=== PATIENT | male | born 1980 | race Caucasian/White ===

== ENCOUNTER 2018-11-29 16:27 | Inpatient (IN) | payer OTHER ==
[2018-11-29 19:12] VITALS: BMI 19.5
--- NOTE | 2018-11-29 19:34 | HP ---
CIWA Score Nausea/Vomitin-No Nausea/No Vomiting Muscle Tremors: None Anxiety: 0-No Anxiety, at Ease Agitation: 2 Paroxysmal Sweats: No Perspiration Orientation: 1-Uncertain about Date Tacttile Disturbances: 0-None Auditory Disturbances: 0-None Visual Disturbances: 0-None Headache: 0-None Present CIWA-Ar Total Score: 3 - Admission Criteria OASAS Guidelines: Admission for Medically Managed Detox: Requires at least one of the followin. CIWA greater than 12 2. Seizures within the past 24 hours 3. Delirium tremens within the past 24 hours 4. Hallucinations within the past 24 hours 5. Acute intervention needed for co occurring medical disorder 6. Acute intervention needed for co occurring psychiatric disorder 7. Severe withdrawal that cannot be handled at a lower level of care (continued vomiting, continued diarrhea, abnormal vital signs) requiring intravenous medication and/or fluids 8. Admission ROS [facility] Chief Complaint: seeking help for alcohol use Allergies/Adverse Reactions: Allergies Allergy/AdvReac Type Severity Reaction Status Date / Time vac AdvReac Severe Uncoded 11/29/18 18:55 History of Present Illness: 38 y/o/m here seeking help for alcohol use. He has been drinking since the age of 23 and states his drinking is getting worse. He has been drinking 3-4 pints of liquor everyday and sometimes drinks beer as well. He starts drinking early in the mornings and if he does not drink he starts to shake and feel nauseous. His last drink was this morning. He has not had any extended periods of sobriety other than when he admitted for detox. He was last in for detox over the last winter at [facility] but did not complete his stay there. He denies any history of seizure and has had multiple episodes of blackouts. He feels that he has a blackout episode almost everyday now. He also smokes Marijuana 2-3 blunts but he does not smoke everyday, he last used marijuana yesterday. He admits to using Percocets twice a week which is buying off the streets, he last took the Percocets four days ago. PMHx of asthma, pancreatitis and a low WBC. SHx on his right knee and left hip for fluid drainage and stomach surgery for cancer 8 years ago. He is living with his cousin and is on disability insurance. He smokes black and mild cigars and uses 3-4 a day. He gets an infusion of gammaglobulin every 3 weeks from [facility] for his low WBC, his last infusion was a week and a half ago. He last had an episode of pancreatitis one week ago and was seen at [facility]. - Ebola screening Have you traveled outside of the country in the last 21 days: No Have you had contact with anyone from an Ebola affected area: No Do you have a fever: No - Review of Systems Constitutional: Loss of Appetite EENT: reports: No Symptoms Reported Respiratory: reports: Shortness of Breath Cardiac: reports: Chest Pain : reports: No Symptoms Reported Musculoskeletal: reports: No Symptoms Reported Integumentary: reports: No Symptoms Reported Neuro: reports: No Symptoms reported Endocrine: reports: No Symptoms Reported Hematology: reports: No Symptoms Reported Psychiatric: reports: Agitated Other Systems: Reviewed and Negative Patient History - Patient Medical History Hx Anemia: No Hx Asthma: Yes Hx Chronic Obstructive Pulmonary Disease (COPD): No Hx Cancer: Yes (stomach cancer, 2010) Hx Cardiac Disorders: No Hx Congestive Heart Failure: No Hx Hypertension: No Hx Hypercholesterolemia: No Hx Pacemaker: No HX Cerebrovascular Accident: No Hx Seizures: No Hx Dementia: No Hx Diabetes: No Hx Gastrointestinal Disorders: No Hx Liver Disease: Yes Hx Genitourinary Disorders: No Hx Sexually Transmitted Disorders: No Hx Renal Disease (ESRD): No Hx Thyroid Disease: No Hx Human Immunodeficiency Virus (HIV): Yes (negative) Hx Hepatitis C: No (age 18, treated ) Hx Depression: No Hx Suicide Attempt: No Hx Bipolar Disorder: No Hx Schizophrenia: No Other Medical History: no suicidal or homicidal ideations - Patient Surgical History Past Surgical History: Yes Hx Neurologic Surgery: No Hx Cataract Extraction: No Hx Cardiac Surgery: No Hx Lung Surgery: No Hx Breast Biopsy: No Hx Abdominal Surgery: Yes (for stomach cancer, 2010) Hx Appendectomy: No Hx Cholecystectomy: No Hx Genitourinary Surgery: No Hx Orthopedic Surgery: Yes (right knee, left hip for fluid drainage 2ndary to infection) Hx Hysterectomy: No Anesthesia Reaction: No - PPD History Previous Implant?: Yes Documented Results: Negative w/o proof Implanted On Prior [facility] Admission?: No - Smoking Cessation Smoking history: Current every day smoker Have you smoked in the past 12 months: Yes Cigars Per Day: 4 Hx Chewing Tobacco Use: No Initiated information on smoking cessation: Yes 'Breaking Loose' booklet given: 11/29/18 - Substance & Tx. History Hx Alcohol Use: Yes Substance Use Type: Alcohol - Substances abused Alcohol Substance route: Oral Frequency: Daily Amount used: 5 to 6 pints or more of vodka,henessey,wine, beer sometimes. Age of first use: 23 Date of last use: 11/29/18 Marijuana/Hashish Substance route: Smoking Frequency: 3-6 times per week Amount used: 3 blunts Age of first use: 21 Date of last use: 11/28/18 Family Disease History - Family Disease History Family History: Denies Admission Physical Exam [facility] - Vital Signs Vital Signs: Vital Signs - 24 hr 11/29/18 19:05 Temperature 97.2 F L Pulse Rate 72 Respiratory 16 Rate Blood Pressure 105/69 - Physical General Appearance: Yes: Mild Distress HEENTM: Yes: EOMI, Normocephalic Respiratory: Yes: Lungs Clear, Normal Breath Sounds, No Accessory Muscle Use Neck: Yes: Supple Cardiology: Yes: Regular Rhythm, Regular Rate, S1, S2 Abdominal: Yes: Normal Bowel Sounds, Flat, Soft. No: Guarding, Rebound, Tenderness Extremities: Yes: Normal Capillary Refill Neurological: Yes: brim blocker II-XII NML intact, Fully Oriented, Alert, Motor Strength 5/5 Integumentary: Yes: Dry - Diagnostic (1) Alcohol intoxication Current Visit: Yes Status: Acute (2) Cannabis use disorder, mild, abuse Current Visit: Yes Status: Acute (3) Asthma Current Visit: Yes Status: Acute (4) Alcohol use disorder Current Visit: Yes Status: Acute Cleared for Admission [facility] - Detox or Rehab [facility] Level of Care: Medically Supervised 2Day Detox Regimen/Protocol: Librium Breathalyzer - Breathalyzer Breathalyzer: 0.167 Urine Drug Screen - Test Device Lot number: [id number] Expiration date: 09/18/20 - Control Is test valid?: Yes - Results Drug screen NEGATIVE: No Urine drug screen results: THC-Marijuana, BZO-Benzodiazepines Inpatient Rehab Admission - Rehab Decision to Admit Inpatient rehab admission?: No
[2018-11-29] MEDS ORDERED: BISMUTH SUBSALICYLATE 524 MG/30 ML UD PO PRN (19:59)
[2018-11-29] MEDS ORDERED: ACETAMINOPHEN 325 MG TABLET (FP) PO PRN ×2 (19:59)
[2018-11-29] MEDS ORDERED: MENTHOL/PHENOL 1 EACH UD MM PRN (19:59)
[2018-11-29] MEDS ORDERED: NICOTINE POLACRILEX 2 MG GUM BUC PRN (19:59)
[2018-11-29] MEDS ORDERED: METHOCARBAMOL 500 MG TABLET PO PRN (19:59)
[2018-11-29] MEDS ORDERED: MAGNESIUM CITRATE 300 ML BOTTLE PO PRN (19:59)
[2018-11-29] MEDS ORDERED: MAGNESIUM HYDROX 2400MG/30ML ORAL SUSPENSION 30 ML CUP PO PRN (19:59)
[2018-11-29] MEDS ORDERED: hydrOXYzine PAMOATE 25 MG CAPSULE (FP) PO PRN (19:59)
[2018-11-29] MEDS ORDERED: IBUPROFEN 400 MG TABLET (FP) PO PRN (19:59)
[2018-11-29] MEDS ORDERED: MAG HYDROX/AL HYDROX/SIMETH 30 ML UNIT-DOSE CUP PO PRN (19:59)
[2018-11-29] MEDS ORDERED: chlordiazePOXIDE HCL 25 MG CAPSULE PO PRN (19:59)
[2018-11-29] MEDS ORDERED: MELATONIN 5 MG TABLETS PO PRN (19:59)
[2018-11-29] MEDS ORDERED: ALBUTEROL SO4 0.083% IH SOL 2.5 MG/3 ML VIAL.NEB. NEB PRN (20:02)
--- NOTE | 2018-11-29 20:13 | PN ---
Teaching Attending Note Name of Resident: Elisa Baer ATTENDING PHYSICIAN STATEMENT I saw and evaluated the patient. I reviewed the resident's note and discussed the case with the resident. I agree with the resident's findings and plan as documented. SUBJECTIVE: pt requesting detox from etoh use , reports use since age 23 , 4 pints liquor /day " and more " , starts drinking in the mornings , reports tremors if not drinking, denies seizures, + blackouts . Latest detox @ [facility] winter 2018 , did not complete . cannabis - not daily percocet : illicit use 4 days ago . tobacco : cigars PMHx of asthma, pancreatitis ( latest 1 week ago , tx @ [facility] ) , congenital leukopenia w/. monthly gammaglobulin infusions @ [facility]. PSHx : right knee , left hip septic bursitis , stomach surgery for cancer 8 years ago. SHX : lives w/ cousin , on SSD OBJECTIVE: wnwd , tearful, + UE tremors . ASSESSMENT AND PLAN: ETOH dependence - Librium taper .
[2018-11-29] MEDS: ALBUTEROL SO4 8 GM HFA INHALER IH SCH (21:50)
[2018-11-29] MEDS ORDERED: THIAMINE HCL 100 MG TABLET (FP) PO SCH (22:00)
[2018-11-29] MEDS: chlordiazePOXIDE HCL 25 MG CAPSULE PO SCH (22:00)
[2018-11-30] MEDS: chlordiazePOXIDE HCL 25 MG CAPSULE PO SCH ×2 (06:24→10:04)
[2018-11-30] MEDS: ALBUTEROL SO4 8 GM HFA INHALER IH SCH ×3 (07:46→13:25)
[2018-11-30] MEDS ORDERED: PRENATAL VITAMINS W/ FOLIC ACID TABLET (FP) PO SCH (10:00)
[2018-11-30 10:32] LABS: ALBUMIN 3.2 g/dl (3.4-5.0); BILIRUBIN,TOTAL 0.8 mg/dL (0.2-1); CALCIUM 8.6 mg/dL (8.5-10.1); CREATININE 0.6 mg/dL (0.55-1.3); MCH 27.7 pg (25.7-33.7); MEAN PLT VOLUME 8.6 fl (7.5-11.1); POTASSIUM 3.8 mmol/L (3.5-5.1)
[2018-11-30 10:56] LABS: HEMATOCRIT 41.5 % (35.4-49); HEMOGLOBIN 13.4 GM/dL (11.7-16.9); MCHC 32.4 g/dl (32.0-35.9); MEAN CELL VOLUME 85.6 fl (80-96); PLATELET COUNT 160 K/MM3 (134-434); RBC 4.85 M/mm3 (4.00-5.60); RDW 21.2 % (11.9-15.9); WHITE BLOOD COUNT 4.2 K/mm3 (4.0-10.0)
--- NOTE | 2018-11-30 11:46 | PN ---
S CIWA - CIWA Score Nausea/Vomitin Muscle Tremors: 2 Anxiety: 2 Agitation: 2 Paroxysmal Sweats: No Perspiration Orientation: 0-Oriented Tacttile Disturbances: 1-Very Mild Itch/Numbness Auditory Disturbances: 1-Very Mild Visual Disturbances: 0-None Headache: 2-Mild CIWA-Ar Total Score: 12 S Progress Note (SOAP) Subjective: alert,irritable,anxious,interrupted sleep,tremor Objective: 11/30/18 11:44 Vital Signs Temperature 97.2 F L 11/30/18 09:48 Pulse Rate 82 11/30/18 09:48 Respiratory Rate 18 11/30/18 09:48 Blood Pressure 140/78 11/30/18 09:48 O2 Sat by Pulse Oximetry (%) Laboratory Last Values WBC 4.2 K/mm3 (4.0-10.0) 11/30/18 07:00 RBC 4.85 M/mm3 (4.00-5.60) 11/30/18 07:00 Hgb 13.4 GM/dL (11.7-16.9) 11/30/18 07:00 Hct 41.5 % (35.4-49) 11/30/18 07:00 MCV 85.6 fl (80-96) 11/30/18 07:00 MCH 27.7 pg (25.7-33.7) 11/30/18 07:00 MCHC 32.4 g/dl (32.0-35.9) 11/30/18 07:00 RDW 21.2 % (11.9-15.9) H 11/30/18 07:00 Plt Count 160 K/MM3 (134-434) 11/30/18 07:00 MPV 8.6 fl (7.5-11.1) 11/30/18 07:00 Sodium 142 mmol/L (136-145) 11/30/18 07:00 Potassium 3.8 mmol/L (3.5-5.1) 11/30/18 07:00 Chloride 108 mmol/L (98-107) H 11/30/18 07:00 Carbon Dioxide 30 mmol/L (21-32) 11/30/18 07:00 Anion Gap 4 MMOL/L (8-16) L 11/30/18 07:00 BUN 7.0 mg/dL (7-18) 11/30/18 07:00 Creatinine 0.6 mg/dL (0.55-1.3) 11/30/18 07:00 Est GFR (CKD-EPI)AfAm 149.92 11/30/18 07:00 Est GFR (CKD-EPI)NonAf 129.35 11/30/18 07:00 Random Glucose 84 mg/dL (74-106) 11/30/18 07:00 Calcium 8.6 mg/dL (8.5-10.1) 11/30/18 07:00 Total Bilirubin 0.8 mg/dL (0.2-1) 11/30/18 07:00 AST 37 U/L (15-37) 11/30/18 07:00 ALT 22 U/L (13-61) 11/30/18 07:00 Alkaline Phosphatase 107 U/L (45-117) 11/30/18 07:00 Total Protein 6.0 g/dl (6.4-8.2) L 11/30/18 07:00 Albumin 3.2 g/dl (3.4-5.0) L 11/30/18 07:00 RPR Titer Nonreactive (NONREACTIVE) 11/30/18 07:00 Assessment: 11/30/18 11:45 withdrawal symptom Plan: continue detox librium regimen
[2018-11-30] MEDS ORDERED: hydrOXYzine HCL 25 MG TABLET (FP) PO PRN (15:23)
[2018-11-30] MEDS ORDERED: hydrOXYzine PAMOATE 50 MG CAPSULE (FP) PO PRN (15:24)
[2018-11-30 16:50] VITALS: BP 139/89; PULSE 54; TEMP 97.7
[2018-12-01] MEDS ORDERED: chlordiazePOXIDE HCL 25 MG CAPSULE PO SCH (05:00)
[2018-12-02] MEDS ORDERED: chlordiazePOXIDE HCL 10 MG CAPSULE PO PRN
[2018-12-02] MEDS ORDERED: chlordiazePOXIDE HCL 10 MG CAPSULE PO SCH (05:00)
[2018-12-03] MEDS ORDERED: chlordiazePOXIDE HCL 10 MG CAPSULE PO SCH (05:00)
[2018-12-04] MEDS ORDERED: chlordiazePOXIDE HCL 10 MG CAPSULE PO ONE (05:00)
== END 2018-11-30 16:53 | disposition home or self-care (01) | DRG 775 ==
LOC: YASAS 16:27 → Y6N 20:13
PROVIDERS: ADMIT Surgery; ATTEND Surgery
PROC: HZ2ZZZZ Detoxification Services for Substance Abuse Treatment (ICD-10-PCS; principal; 2018-11-29)
DX: F10.230 Alcohol dependence with withdrawal, uncomplicated (principal); F12.10 Cannabis abuse, uncomplicated; F17.210 Nicotine dependence, cigarettes, uncomplicated; J45.909 Unspecified asthma, uncomplicated; Z85.028 Personal history of other malignant neoplasm of stomach
CPT/HCPCS: 36415; 80053; 85027; 86480; 86593

== ENCOUNTER 2019-01-31 18:09 | Inpatient (IN) | payer OTHER ==
[2019-01-31 19:58] VITALS: BMI 20.1
--- NOTE | 2019-01-31 20:58 | HP ---
CIWA Score Nausea/Vomitin Muscle Tremors: 6 Anxiety: 0-No Anxiety, at Ease Agitation: 4-Moderately Restless Paroxysmal Sweats: 3 Orientation: 0-Oriented Tacttile Disturbances: 0-None Auditory Disturbances: 0-None Visual Disturbances: 0-None Headache: 0-None Present CIWA-Ar Total Score: 16 - Admission Criteria OASAS Guidelines: Admission for Medically Managed Detox: Requires at least one of the followin. CIWA greater than 12 2. Seizures within the past 24 hours 3. Delirium tremens within the past 24 hours 4. Hallucinations within the past 24 hours 5. Acute intervention needed for co occurring medical disorder 6. Acute intervention needed for co occurring psychiatric disorder 7. Severe withdrawal that cannot be handled at a lower level of care (continued vomiting, continued diarrhea, abnormal vital signs) requiring intravenous medication and/or fluids 8. Admission ROS [facility] Chief Complaint: Alcohol withdrawal symptoms Allergies/Adverse Reactions: Allergies Allergy/AdvReac Type Severity Reaction Status Date / Time No Known Allergies Allergy Verified 01/31/19 19:42 History of Present Illness: 38 years old male with a long history of alcohol dependence ( 15 years) is seeking admission to detox. Patient has history of asthma, pancreatitis, depression and congenital leukopenia with infusion of gammaglobulin every 3 weeks at [facility]. He reports intermittent blackouts when he drinks. Last incident was last night. He denies suicidal ideation at this time Exam Limitations: Clinical Condition - Ebola screening Have you traveled outside of the country in the last 21 days: No (N) Have you had contact with anyone from an Ebola affected area: No Do you have a fever: No - Review of Systems Constitutional: Loss of Appetite, Malaise, Changes in sleep, Weakness EENT: reports: Nose Congestion Respiratory: reports: No Symptoms reported Cardiac: reports: No Symptoms Reported GI: reports: Poor Appetite, Poor Fluid Intake, Abdominal cramping : reports: No Symptoms Reported Musculoskeletal: reports: Back Pain, Joint Pain, Muscle Pain, Other (bone pain and shoulder pain) Neuro: reports: Tremors Endocrine: reports: No Symptoms Reported Hematology: reports: No Symptoms Reported Psychiatric: reports: Orientated x3, Anxious Other Systems: Reviewed and Negative Patient History - Patient Medical History Hx Anemia: No Hx Asthma: Yes (Albuterol) Hx Chronic Obstructive Pulmonary Disease (COPD): No Hx Cancer: Yes (stomach cancer, 2010) Hx Cardiac Disorders: No Hx Congestive Heart Failure: No Hx Hypertension: No Hx Hypercholesterolemia: No Hx Pacemaker: No HX Cerebrovascular Accident: No Hx Seizures: No Hx Dementia: No Hx Diabetes: No Hx Gastrointestinal Disorders: Yes (Pancreatitis) Hx Liver Disease: No Hx Genitourinary Disorders: No Hx Sexually Transmitted Disorders: No Hx Renal Disease (ESRD): No Hx Thyroid Disease: No Hx Human Immunodeficiency Virus (HIV): Yes (Negative 2019) Hx Hepatitis C: No (age 18, treated ) Hx Depression: No Hx Suicide Attempt: No Hx Bipolar Disorder: No Hx Schizophrenia: No Other Medical History: Congenital leukopenia with infusion of gammaglobulin every 3 weeks - Patient Surgical History Past Surgical History: Yes Hx Neurologic Surgery: No Hx Cataract Extraction: No Hx Cardiac Surgery: No Hx Lung Surgery: No Hx Breast Surgery: No Hx Breast Biopsy: No Hx Abdominal Surgery: Yes (for stomach cancer, 2010) Hx Appendectomy: No Hx Cholecystectomy: No Hx Genitourinary Surgery: No Hx Section: No Hx Orthopedic Surgery: Yes (right knee, left hip for fluid drainage 2ndary to infection) Hx Hysterectomy: No Anesthesia Reaction: No - PPD History Previous Implant?: Yes Documented Results: Negative w/o proof Implanted On Prior R Admission?: No PPD to be Administered?: Yes - Reproductive History Patient is a Female of Child Bearing Age (11 -55 yrs old): No (male) - Smoking Cessation Smoking history: Current every day smoker Have you smoked in the past 12 months: Yes Aproximately how many cigarettes per day: 5 Cigars Per Day: 4 Hx Chewing Tobacco Use: No Initiated information on smoking cessation: Yes 'Breaking Loose' booklet given: 01/31/19 - Substance & Tx. History Hx Alcohol Use: Yes Hx Substance Use: Yes Substance Use Type: Alcohol, Marijuana Hx Substance Use Treatment: Yes ([facility]) - Substances abused Alcohol Substance route: Oral Frequency: Daily Amount used: 5 to 6 pints or more of vodka,henessey,wine, beer sometimes. Age of first use: 23 Date of last use: 01/31/19 Marijuana/Hashish Substance route: Smoking Frequency: 3-6 times per week Amount used: 3 blunts Age of first use: 21 Date of last use: 01/30/19 Other Other (specify): percocet Substance route: Oral Frequency: Daily Amount used: 3 pills/ week Age of first use: 10 Date of last use: 01/17/19 Family Disease History - Family Disease History Family History: Denies Admission Physical Exam [facility] - Vital Signs Vital Signs: Vital Signs - 24 hr 01/31/19 19:40 Temperature 98.0 F Pulse Rate 99 H Respiratory 18 Rate Blood Pressure 129/86 - Physical General Appearance: Yes: Moderate Distress, Tremorous, Sweating, Anxious HEENTM: Yes: Within Normal Limits Respiratory: Yes: Lungs Clear, Normal Breath Sounds, No Respiratory Distress Neck: Yes: Supple Breast: Yes: Breast Exam Deferred Cardiology: Yes: Tachycardia Abdominal: Yes: Normal Bowel Sounds Genitourinary: Yes: Within Normal Limits Back: Yes: Normal Inspection Musculoskeletal: Yes: Within Normal Limits Extremities: Yes: Tremors Neurological: Yes: Alert, Normal Mood/Affect Integumentary: Yes: Warm Lymphatic: Yes: Within Normal Limits - Diagnostic (1) Alcohol dependence with withdrawal Current Visit: Yes Status: Chronic (2) Asthma Current Visit: Yes Status: Chronic (3) Congenital leukopenia Current Visit: Yes Status: Chronic (4) Nicotine dependence Current Visit: Yes Status: Chronic (5) Depression Current Visit: Yes Status: Acute Qualifiers: Depression Type: unspecified Qualified Code(s): F32.9 - Major depressive disorder, single episode, unspecified (6) Pancreatitis Current Visit: Yes Status: Chronic Qualifiers: Chronicity: chronic Cleared for Admission [facility] - Detox or Rehab [facility] Level of Care: Medically Managed Detox Regimen/Protocol: Librium Breathalyzer - Breathalyzer Breathalyzer: 0 Urine Drug Screen - Test Device Lot number: [id number] Expiration date: 10/19/20 - Control Is test valid?: Yes - Results Drug screen NEGATIVE: No Urine drug screen results: THC-Marijuana, BZO-Benzodiazepines Inpatient Rehab Admission - Rehab Decision to Admit Inpatient rehab admission?: No
[2019-01-31] MEDS ORDERED: chlordiazePOXIDE HCL 25 MG CAPSULE PO PRN (21:22)
[2019-01-31] MEDS ORDERED: MAGNESIUM HYDROX 2400MG/30ML ORAL SUSPENSION 30 ML CUP PO PRN (21:22)
[2019-01-31] MEDS ORDERED: BISMUTH SUBSALICYLATE 524 MG/30 ML UD PO PRN (21:22)
[2019-01-31] MEDS ORDERED: METHOCARBAMOL 500 MG TABLET PO PRN (21:22)
[2019-01-31] MEDS ORDERED: NICOTINE POLACRILEX 2 MG GUM BUC PRN (21:22)
[2019-01-31] MEDS ORDERED: MAGNESIUM CITRATE 300 ML BOTTLE PO PRN (21:22)
[2019-01-31] MEDS ORDERED: ACETAMINOPHEN 325 MG TABLET (FP) PO PRN ×2 (21:22)
[2019-01-31] MEDS ORDERED: IBUPROFEN 400 MG TABLET (FP) PO PRN (21:22)
[2019-01-31] MEDS ORDERED: MENTHOL/PHENOL 1 EACH UD MM PRN (21:22)
[2019-01-31] MEDS ORDERED: MELATONIN 5 MG TABLETS PO PRN (21:22)
[2019-01-31] MEDS ORDERED: MAG HYDROX/AL HYDROX/SIMETH 30 ML UNIT-DOSE CUP PO PRN (21:22)
[2019-01-31] MEDS ORDERED: hydrOXYzine PAMOATE 25 MG CAPSULE (FP) PO PRN (21:22)
[2019-01-31] MEDS ORDERED: ALBUTEROL SO4 8 GM HFA INHALER IH PRN (21:24)
[2019-01-31] MEDS ORDERED: THIAMINE HCL 100 MG TABLET (FP) PO SCH (22:00)
[2019-01-31] MEDS: chlordiazePOXIDE HCL 25 MG CAPSULE PO SCH (22:53)
[2019-01-31 23:01] VITALS: TEMP 97.5
[2019-02-01] MEDS: chlordiazePOXIDE HCL 25 MG CAPSULE PO SCH ×2 (05:12→10:06)
--- NOTE | 2019-02-01 08:29 | CONSULT ---
[facility] Psychiatric Consult - Data Date of interview: 02/01/19 Admission source: Self-referred Identifying data: Mr Beckford is a 38 years old single male, father of a 13 years old daughter, unemployed receiving SSI, living with cousin seeking detox treatment for alcohol, opioid and cannabis Substance Abuse History: Reports history of alcohol, percocet and marijuana. Refer to addiction counselor's summary for further information Medical History: Significant for bronchial asthma, congenital leukopenia requiring infusion gammaglobulin every 3 weeks, history of pancreatitis, treament for hepatitis C and multiple surgeries( gastric cancer, drainage of fluid from right knee & left hip). smokes 5 cigars daily Psychiatric History: Denies history of previous psychiatric treatment. However, he requests to see a psychiatrist because of feeling depressed when he tries to stop drinking Physical/Sexual Abuse/Trauma History: Denies history of alcohol, percocet and marijuana use. Refer to addiction counselor's summary for further information Additional Comment: Reports multiple previous misdemeanor arrests on charge of possession/sale of marijuana and drinking in public Mental Status Exam - Mental Status Exam Alert and Oriented to: Time, Place, Person Cognitive Function: Fair Patient Appearance: Well Groomed Mood: Depressed Affect: Appropriate Patient Behavior: Cooperative Speech Pattern: Clear Voice Loudness: Normal Thought Process: Intact, Goal Oriented Thought Disorder: Not Present Hallucinations: Denies Suicidal Ideation: Denies Homicidal Ideation: Denies Insight/Judgement: Poor Sleep: Poorly Appetite: Poor Muscle strength/Tone: Normal Gait/Station: Normal Psychiatric Findings - Problem List ([place] 1, 2,3) (1) Substance induced mood disorder Current Visit: Yes Status: Acute (2) Substance-induced sleep disorder Current Visit: Yes Status: Acute (3) Alcohol dependence with withdrawal Current Visit: Yes Status: Chronic (4) Cannabis dependence Current Visit: Yes Status: Acute (5) Opioid abuse Current Visit: Yes Status: Acute (6) Nicotine dependence Current Visit: Yes Status: Chronic (7) Asthma Current Visit: Yes Status: Chronic (8) Congenital leukopenia Current Visit: Yes Status: Chronic (9) Pancreatitis Current Visit: Yes Status: Chronic Qualifiers: Chronicity: chronic (10) Hepatitis C Current Visit: Yes Status: Resolved - Initial Treatment Plan Initial Treatment Plan: 1) Start Melatonin 10 mg po HS prn for insomnia. 2) Continue inpatient detoxification
[2019-02-01] MEDS ORDERED: MELATONIN 5 MG TABLETS PO PRN (09:13)
[2019-02-01 09:38] VITALS: BP 128/98; PULSE 74
[2019-02-01 09:55] LABS: HEMATOCRIT 40.5 % (35.4-49); HEMOGLOBIN 13.1 GM/dL (11.7-16.9); MCH 27.8 pg (25.7-33.7); MCHC 32.4 g/dl (32.0-35.9); MEAN CELL VOLUME 85.8 fl (80-96); MEAN PLT VOLUME 7.9 fl (7.5-11.1); PLATELET COUNT 221 K/MM3 (134-434); RBC 4.72 M/mm3 (4.00-5.60); RDW 23.9 % (11.9-15.9)
[2019-02-01] MEDS ORDERED: NICOTINE 14 MG/24 HOURS TOPICAL PATCH TD SCH (10:00)
[2019-02-01] MEDS ORDERED: PRENATAL VITAMINS W/ FOLIC ACID TABLET (FP) PO SCH (10:00)
[2019-02-01 10:03] LABS: ALBUMIN 3.4 g/dl (3.4-5.0); BILIRUBIN,TOTAL 1.1 mg/dL (0.2-1); BLOOD UREA NITROGEN 10.4 mg/dL (7-18); CALCIUM 9.2 mg/dL (8.5-10.1); CREATININE 0.6 mg/dL (0.55-1.3); POTASSIUM 3.4 mmol/L (3.5-5.1); TOT PROT 6.6 g/dl (6.4-8.2)
--- NOTE | 2019-02-01 11:33 | PN ---
S CIWA - CIWA Score Nausea/Vomitin-No Nausea/No Vomiting Muscle Tremors: 3 Anxiety: 3 Agitation: 3 Paroxysmal Sweats: 3 Orientation: 0-Oriented Tacttile Disturbances: 0-None Auditory Disturbances: 0-None Visual Disturbances: 0-None Headache: 0-None Present CIWA-Ar Total Score: 12 [facility] Progress Note (SOAP) Subjective: sweats irritable agitation mild shakes interrupted sleep Objective: 02/01/19 11:32 Vital Signs Temperature 97.5 F L 02/01/19 09:37 Pulse Rate 74 02/01/19 09:37 Respiratory Rate 18 02/01/19 09:37 Blood Pressure 128/98 02/01/19 09:37 O2 Sat by Pulse Oximetry (%) Laboratory Tests 02/01/19 02/01/19 02/01/19 08:00 08:00 08:00 WBC 5.0 RBC 4.72 Hgb 13.1 Hct 40.5 MCV 85.8 MCH 27.8 MCHC 32.4 RDW 23.9 H Plt Count 221 D MPV 7.9 Sodium 140 Potassium 3.4 L Chloride 104 Carbon Dioxide 30 Anion Gap 6 L BUN 10.4 Creatinine 0.6 Est GFR (CKD-EPI)AfAm 149.92 Est GFR (CKD-EPI)NonAf 129.35 Random Glucose 83 Calcium 9.2 Total Bilirubin 1.1 H AST 27 ALT 22 Alkaline Phosphatase 138 H Total Protein 6.6 Albumin 3.4 RPR Titer Nonreactive labs noted mild hypokalemia 3.4; kdur 20meq x one ordered aaox3 ambulating no acute distress Assessment: 02/01/19 11:32 withdrawal sx Plan: continue detox increase fluids
[2019-02-01] MEDS ORDERED: POTASSIUM CHLORIDE TABS 20 MEQ TABLET.ER (FP) PO ONE (11:46)
--- NOTE | 2019-02-01 12:19 | PN ---
[facility] Progress Note Note: pt arrived yesterday in withdrawals. pt c/o of withdrawals Laboratory Tests 02/01/19 02/01/19 02/01/19 08:00 08:00 08:00 WBC 5.0 RBC 4.72 Hgb 13.1 Hct 40.5 MCV 85.8 MCH 27.8 MCHC 32.4 RDW 23.9 H Plt Count 221 D MPV 7.9 Sodium 140 Potassium 3.4 L Chloride 104 Carbon Dioxide 30 Anion Gap 6 L BUN 10.4 Creatinine 0.6 Est GFR (CKD-EPI)AfAm 149.92 Est GFR (CKD-EPI)NonAf 129.35 Random Glucose 83 Calcium 9.2 Total Bilirubin 1.1 H AST 27 ALT 22 Alkaline Phosphatase 138 H Total Protein 6.6 Albumin 3.4 RPR Titer Nonreactive aaox3 ambulating pt states now that he wants to leave AMA. pt was told he just arrived and to give detox a chance..pt states I need to go home and this is not for me. pt was told of the risks of relapse, OD, seizures and loss however pt chose to sign out.
--- NOTE | 2019-02-01 12:47 | DS ---
[facility] Detox Discharge Summary Admission Date: 01/31/19 - History Present History: Alcohol Dependence, Cannabis Dependence, Opioid Dependence - Physical Exam Results Vital Signs: Vital Signs Temperature 97.5 F L 02/01/19 09:37 Pulse Rate 74 02/01/19 09:37 Respiratory Rate 18 02/01/19 09:37 Blood Pressure 128/98 02/01/19 09:37 O2 Sat by Pulse Oximetry (%) Pertinent Admission Physical Exam Findings: pt arrived in withdrawals Laboratory Tests 02/01/19 02/01/19 02/01/19 08:00 08:00 08:00 WBC 5.0 RBC 4.72 Hgb 13.1 Hct 40.5 MCV 85.8 MCH 27.8 MCHC 32.4 RDW 23.9 H Plt Count 221 D MPV 7.9 Sodium 140 Potassium 3.4 L Chloride 104 Carbon Dioxide 30 Anion Gap 6 L BUN 10.4 Creatinine 0.6 Est GFR (CKD-EPI)AfAm 149.92 Est GFR (CKD-EPI)NonAf 129.35 Random Glucose 83 Calcium 9.2 Total Bilirubin 1.1 H AST 27 ALT 22 Alkaline Phosphatase 138 H Total Protein 6.6 Albumin 3.4 RPR Titer Nonreactive labs noted pt refused to complete detox; states this is not for me and i want to go home. I am not ready. pt was asked to stay and complete his detox and give it a chance and was told of risk of relapse, seizures, OD and or loss, however, pt chose to sign out regardless of the motivational counseling and medication management. - Treatment Hospital Course: Discharged Condition Good Patient has Accepted a Rehab Referral to: pt declined rehab;referral provided - Medication Discharge Medications: Ambulatory Orders Albuterol Sulfate Inhaler - [Ventolin Hfa Inhaler -] 1 - 2 inh PO Q4H PRN - Diagnosis (1) Alcohol intoxication Status: Acute (2) Alcohol use disorder Status: Acute (3) Cannabis use disorder, mild, abuse Status: Chronic (4) Depression Status: Acute Qualifiers: Depression Type: unspecified Qualified Code(s): F32.9 - Major depressive disorder, single episode, unspecified (5) Substance induced mood disorder Status: Acute (6) Substance-induced sleep disorder Status: Acute (7) Alcohol dependence with withdrawal Status: Chronic (8) Asthma Status: Chronic (9) Congenital leukopenia Status: Chronic (10) Nicotine dependence Status: Chronic Qualifiers: Nicotine product type: cigarettes Substance use status: uncomplicated Qualified Code(s): F17.210 - Nicotine dependence, cigarettes, uncomplicated (11) Pancreatitis Status: Chronic Qualifiers: Chronicity: chronic (12) Hepatitis C Status: Resolved - AMA Did Patient Leave Against Medical Advice: Yes
--- NOTE | 2019-02-01 13:46 | EKG ---
Test Reason : Blood Pressure : / mmHG Vent. Rate : 063 BPM Atrial Rate : 063 BPM P-R Int : 124 ms QRS Dur : 088 ms QT Int : 426 ms P-R-T Axes : 049 074 072 degrees QTc Int : 435 ms NORMAL SINUS RHYTHM WITH SINUS ARRHYTHMIA NORMAL ECG NO PREVIOUS ECGS AVAILABLE Confirmed by ZORAN VALDEZ MD ([id number]) on 02/01/2019 1:45:59 PM Referred By: PINKY SCALES Confirmed By:ZORAN VALDEZ MD
[2019-02-02] MEDS ORDERED: chlordiazePOXIDE HCL 25 MG CAPSULE PO SCH (05:00)
[2019-02-03] MEDS ORDERED: chlordiazePOXIDE HCL 10 MG CAPSULE PO PRN
[2019-02-03] MEDS ORDERED: chlordiazePOXIDE HCL 10 MG CAPSULE PO SCH (05:00)
[2019-02-04] MEDS ORDERED: chlordiazePOXIDE HCL 10 MG CAPSULE PO SCH (05:00)
[2019-02-05] MEDS ORDERED: chlordiazePOXIDE HCL 10 MG CAPSULE PO ONE (05:00)
== END 2019-02-01 13:03 | disposition left against medical advice (07) | DRG 770 ==
LOC: YASAS 18:09 → Y6N 22:12
PROVIDERS: ADMIT Surgery; ATTEND Surgery
PROC: HZ2ZZZZ Detoxification Services for Substance Abuse Treatment (ICD-10-PCS; principal; 2019-01-31)
DX: F11.23 Opioid dependence with withdrawal (principal); F10.230 Alcohol dependence with withdrawal, uncomplicated; F12.20 Cannabis dependence, uncomplicated; F17.210 Nicotine dependence, cigarettes, uncomplicated; F19.282 Other psychoactive substance dependence with psychoactive substance-induced sleep disorder; F19.24 Other psychoactive substance dependence with psychoactive substance-induced mood disorder; F32.9 Major depressive disorder, single episode, unspecified; J45.909 Unspecified asthma, uncomplicated; D70.0 Congenital agranulocytosis; K86.1 Other chronic pancreatitis; B18.2 Chronic viral hepatitis C; Z85.028 Personal history of other malignant neoplasm of stomach
CPT/HCPCS: 36415; 80053; 85027; 86480; 86593; 93005; 93010

== ENCOUNTER 2021-11-01 10:30 | Inpatient (IN) | payer OTHER ==
[2021-11-01] MEDS ORDERED: METHOCARBAMOL 500 MG TABLET PO PRN (11:19)
[2021-11-01] MEDS ORDERED: ONDANSETRON *ODT* 4 MG TABLET SL PRN (11:19)
[2021-11-01] MEDS ORDERED: LOPERAMIDE HCL 2 MG CAPSULE PO PRN (11:19)
[2021-11-01] MEDS ORDERED: MAGNESIUM HYDROX 2400MG/30ML ORAL SUSPENSION 30 ML CUP PO PRN (11:19)
[2021-11-01] MEDS ORDERED: NALOXONE HCL (KLOXXADO) 8 MG SPRAY NS PRN (11:19)
[2021-11-01] MEDS ORDERED: ACETAMINOPHEN 325 MG TABLET (FP) PO PRN ×2 (11:19)
[2021-11-01] MEDS ORDERED: MAG HYDROX/AL HYDROX/SIMETH 30 ML UNIT-DOSE CUP PO PRN (11:19)
[2021-11-01] MEDS ORDERED: BENZOCAINE/MENTHOL (CHLORASEPTIC ) LOZENGE MM PRN (11:19)
[2021-11-01] MEDS ORDERED: DICYCLOMINE HCL 10 MG CAPSULE PO PRN (11:19)
[2021-11-01] MEDS ORDERED: NICOTINE 10 MG CARTRIDGE (INHALER) IH PRN (11:19)
[2021-11-01] MEDS ORDERED: IBUPROFEN 600 MG TABLET (FP) PO PRN (11:19)
[2021-11-01] MEDS ORDERED: IBUPROFEN 400 MG TABLET (FP) PO PRN (11:19)
[2021-11-01] MEDS ORDERED: BISMUTH SUBSALICYLATE 262 MG/15 ML BTL PO PRN (11:19)
[2021-11-01] MEDS ORDERED: MAGNESIUM CITRATE 300 ML BOTTLE PO PRN (11:19)
[2021-11-01] MEDS ORDERED: chlordiazePOXIDE HCL 25 MG CAPSULE PO PRN (11:19)
[2021-11-01] MEDS ORDERED: ALBUTEROL SO4 HFA INHALER IH PRN (11:23)
[2021-11-01 11:41] VITALS: BMI 20.6
[2021-11-01] MEDS: NICOTINE 7 MG/24 HOURS TOPICAL PATCH TD SCH (15:58)
[2021-11-01] MEDS: PRENATAL VITAMINS W/ FOLIC ACID TABLET (FP) PO SCH (15:59)
[2021-11-01] MEDS: hydrOXYzine PAMOATE 25 MG CAPSULE (FP) PO SCH ×3 (16:02→22:23)
[2021-11-01] MEDS: chlordiazePOXIDE HCL 25 MG CAPSULE PO SCH ×2 (18:07→22:22)
[2021-11-01] MEDS: MELATONIN 5 MG TABLETS PO SCH (22:22)
[2021-11-01] MEDS: THIAMINE HCL 100 MG TABLET (FP) PO SCH (22:29)
[2021-11-02] MEDS: chlordiazePOXIDE HCL 25 MG CAPSULE PO SCH ×4 (07:28→22:33)
[2021-11-02] MEDS: hydrOXYzine PAMOATE 25 MG CAPSULE (FP) PO SCH ×5 (07:28→22:19)
[2021-11-02 09:52] LABS: HEMATOCRIT 38.8 % (35.4-49); HEMOGLOBIN 12.9 GM/dL (11.7-16.9); MCH 28.2 pg (25.7-33.7); MCHC 33.2 g/dl (32.0-35.9); MEAN CELL VOLUME 85.1 fl (80-96); MEAN PLT VOLUME 8.5 fl (7.5-11.1); PLATELET COUNT 187 10^3/uL (134-434); RBC 4.56 M/mm3 (4.00-5.60); RDW 18.7 % (11.9-15.9); WHITE BLOOD COUNT 3.2 K/mm3 (4.0-10.0)
[2021-11-02 09:55] LABS: BLOOD UREA NITROGEN 10.7 mg/dL (7-18)
[2021-11-02 09:56] LABS: ALBUMIN 3.1 g/dl (3.4-5.0); CALCIUM 8.9 mg/dL (8.5-10.1)
[2021-11-02 09:58] LABS: BILIRUBIN,TOTAL 1.1 mg/dL (0.2-1); CREATININE 0.6 mg/dL (0.55-1.3)
[2021-11-02 10:00] LABS: TOT PROT 6.4 g/dl (6.4-8.2)
[2021-11-02] MEDS: NICOTINE 7 MG/24 HOURS TOPICAL PATCH TD SCH (10:30)
[2021-11-02] MEDS: PRENATAL VITAMINS W/ FOLIC ACID TABLET (FP) PO SCH (10:30)
[2021-11-02] MEDS: MELATONIN 5 MG TABLETS PO SCH (22:19)
[2021-11-02] MEDS: THIAMINE HCL 100 MG TABLET (FP) PO SCH (22:19)
[2021-11-03] MEDS ORDERED: chlordiazePOXIDE HCL 25 MG CAPSULE PO SCH (05:00)
[2021-11-03] MEDS: hydrOXYzine PAMOATE 25 MG CAPSULE (FP) PO SCH (06:14)
[2021-11-03 09:35] VITALS: BP 97/60; PULSE 60; TEMP 97.3
[2021-11-03] MEDS ORDERED: PENICILLIN G BENZATHINE 2,400,000 UNIT/4 ML PFS IM ONE (10:35)
[2021-11-04] MEDS ORDERED: chlordiazePOXIDE HCL 10 MG CAPSULE PO PRN
[2021-11-04] MEDS ORDERED: chlordiazePOXIDE HCL 10 MG CAPSULE PO SCH (05:00)
[2021-11-05] MEDS ORDERED: chlordiazePOXIDE HCL 10 MG CAPSULE PO SCH (05:00)
[2021-11-06] MEDS ORDERED: chlordiazePOXIDE HCL 10 MG CAPSULE PO ONE (05:00)
== END 2021-11-03 10:55 | disposition left against medical advice (07) | DRG 770 ==
LOC: YASAS 10:30 → Y3N 12:13
PROVIDERS: ADMIT Allergy & Immunology; ATTEND Surgery
PROC: HZ2ZZZZ Detoxification Services for Substance Abuse Treatment (ICD-10-PCS; principal; 2021-11-01)
DX: F10.230 Alcohol dependence with withdrawal, uncomplicated (principal); F10.220 Alcohol dependence with intoxication, uncomplicated; F12.20 Cannabis dependence, uncomplicated; F17.210 Nicotine dependence, cigarettes, uncomplicated; F19.24 Other psychoactive substance dependence with psychoactive substance-induced mood disorder; F19.282 Other psychoactive substance dependence with psychoactive substance-induced sleep disorder; F32.A Depression, unspecified; J45.909 Unspecified asthma, uncomplicated; R76.8 Other specified abnormal immunological findings in serum; G47.00 Insomnia, unspecified; D70.9 Neutropenia, unspecified; Z28.310 Unvaccinated for COVID-19; Z86.19 Personal history of other infectious and parasitic diseases; Z87.19 Personal history of other diseases of the digestive system; Z56.0 Unemployment, unspecified
CPT/HCPCS: 36415; 80053; 85027; 86593; 86780; 87811; C9803-CS; U0003; U0005

== ENCOUNTER 2022-01-17 09:47 | Inpatient (IN) | payer OTHER ==
[2022-01-17 10:35] VITALS: BMI 20.9
[2022-01-17] MEDS ORDERED: MAGNESIUM CITRATE 300 ML BOTTLE PO PRN (11:05)
[2022-01-17] MEDS ORDERED: NICOTINE 10 MG CARTRIDGE (INHALER) IH PRN (11:05)
[2022-01-17] MEDS ORDERED: DICYCLOMINE HCL 10 MG CAPSULE PO PRN (11:05)
[2022-01-17] MEDS ORDERED: BISMUTH SUBSALICYLATE 524 MG/30 ML PO PRN (11:05)
[2022-01-17] MEDS ORDERED: chlordiazePOXIDE HCL 25 MG CAPSULE PO PRN (11:05)
[2022-01-17] MEDS ORDERED: IBUPROFEN 400 MG TABLET (FP) PO PRN (11:05)
[2022-01-17] MEDS ORDERED: BENZOCAINE/MENTHOL (CHLORASEPTIC ) LOZENGE MM PRN (11:05)
[2022-01-17] MEDS ORDERED: MAG HYDROX/AL HYDROX/SIMETH 30 ML UNIT-DOSE CUP PO PRN (11:05)
[2022-01-17] MEDS ORDERED: IBUPROFEN 600 MG TABLET (FP) PO PRN (11:05)
[2022-01-17] MEDS ORDERED: ACETAMINOPHEN 325 MG TABLET (FP) PO PRN ×2 (11:05)
[2022-01-17] MEDS ORDERED: MAGNESIUM HYDROX 2400MG/30ML ORAL SUSPENSION 30 ML CUP PO PRN (11:05)
[2022-01-17] MEDS ORDERED: LOPERAMIDE HCL 2 MG CAPSULE PO PRN (11:05)
[2022-01-17] MEDS ORDERED: ONDANSETRON *ODT* 4 MG TABLET SL PRN (11:05)
[2022-01-17] MEDS ORDERED: ALBUTEROL SO4 HFA INHALER IH PRN (11:09)
[2022-01-17] MEDS: hydrOXYzine PAMOATE 25 MG CAPSULE (FP) PO SCH ×3 (14:39→22:31)
[2022-01-17] MEDS: PRENATAL VITAMINS W/ FOLIC ACID TABLET (FP) PO SCH (14:48)
[2022-01-17] MEDS: NICOTINE 14 MG/24 HOURS TOPICAL PATCH TD SCH (14:48)
[2022-01-17] MEDS: chlordiazePOXIDE HCL 25 MG CAPSULE PO SCH ×2 (17:48→22:54)
[2022-01-17 17:51] LABS: HEMATOCRIT 41.4 % (35.4-49); HEMOGLOBIN 13.7 GM/dL (11.7-16.9); MCH 28.5 pg (25.7-33.7); MEAN CELL VOLUME 86.3 fl (80-96); MEAN PLT VOLUME 8.4 fl (7.5-11.1); PLATELET COUNT 231 10^3/uL (134-434); RDW 16.6 % (11.9-15.9); WHITE BLOOD COUNT 4.2 K/mm3 (4.0-10.0)
[2022-01-17 17:52] LABS: BLOOD UREA NITROGEN 13.2 mg/dL (7-18)
[2022-01-17 17:54] LABS: ALBUMIN 3.8 g/dl (3.4-5.0); CALCIUM 9.5 mg/dL (8.5-10.1); CREATININE 0.7 mg/dL (0.55-1.3)
[2022-01-17 17:55] LABS: BILIRUBIN,TOTAL 0.7 mg/dL (0.2-1); TOT PROT 7.8 g/dl (6.4-8.2)
[2022-01-17] MEDS: NEOMYCIN OU SCH (22:31)
[2022-01-17] MEDS: BACITRACIN OU SCH (22:31)
[2022-01-17] MEDS: POLYMYXIN B OU SCH (22:31)
[2022-01-17] MEDS: MELATONIN 5 MG TABLETS PO SCH (22:31)
[2022-01-17] MEDS: [UNRECOGNIZED DRUG - OTHER] OU SCH (22:31)
[2022-01-17] MEDS: THIAMINE HCL 100 MG TABLET (FP) PO SCH (22:31)
[2022-01-18] MEDS: hydrOXYzine PAMOATE 25 MG CAPSULE (FP) PO SCH ×5 (06:00→22:38)
[2022-01-18] MEDS: METHOCARBAMOL 500 MG TABLET PO PRN ×2 (06:00→11:00)
[2022-01-18] MEDS: NEOMYCIN OU SCH ×4 (06:01→22:38)
[2022-01-18] MEDS: BACITRACIN OU SCH ×4 (06:01→22:38)
[2022-01-18] MEDS: chlordiazePOXIDE HCL 25 MG CAPSULE PO SCH ×4 (06:01→22:38)
[2022-01-18] MEDS: POLYMYXIN B OU SCH ×4 (06:01→22:38)
[2022-01-18] MEDS: [UNRECOGNIZED DRUG - OTHER] OU SCH ×4 (06:01→22:38)
[2022-01-18] MEDS: PRENATAL VITAMINS W/ FOLIC ACID TABLET (FP) PO SCH (10:23)
[2022-01-18] MEDS: NICOTINE 14 MG/24 HOURS TOPICAL PATCH TD SCH (10:23)
[2022-01-18] MEDS: traZODone HCL 100 MG TABLET (FP) PO SCH (22:37)
[2022-01-18] MEDS: MELATONIN 5 MG TABLETS PO SCH (22:37)
[2022-01-18] MEDS: THIAMINE HCL 100 MG TABLET (FP) PO SCH (22:38)
[2022-01-19] MEDS: chlordiazePOXIDE HCL 25 MG CAPSULE PO SCH ×5 (05:32→22:12)
[2022-01-19] MEDS: hydrOXYzine PAMOATE 25 MG CAPSULE (FP) PO SCH ×6 (05:32→22:12)
[2022-01-19] MEDS: BACITRACIN OU SCH ×3 (05:34→22:12)
[2022-01-19] MEDS: [UNRECOGNIZED DRUG - OTHER] OU SCH ×3 (05:34→22:12)
[2022-01-19] MEDS: POLYMYXIN B OU SCH ×3 (05:34→22:12)
[2022-01-19] MEDS: NEOMYCIN OU SCH ×3 (05:34→22:12)
[2022-01-19] MEDS: PRENATAL VITAMINS W/ FOLIC ACID TABLET (FP) PO SCH (11:03)
[2022-01-19] MEDS: NICOTINE 14 MG/24 HOURS TOPICAL PATCH TD SCH (11:03)
[2022-01-19] MEDS: MELATONIN 5 MG TABLETS PO SCH (22:12)
[2022-01-19] MEDS: traZODone HCL 100 MG TABLET (FP) PO SCH (22:12)
[2022-01-19] MEDS: THIAMINE HCL 100 MG TABLET (FP) PO SCH (22:12)
[2022-01-20] MEDS ORDERED: chlordiazePOXIDE HCL 10 MG CAPSULE PO PRN
[2022-01-20] MEDS ORDERED: chlordiazePOXIDE HCL 10 MG CAPSULE PO SCH (05:00)
[2022-01-20] MEDS: hydrOXYzine PAMOATE 25 MG CAPSULE (FP) PO SCH (05:45)
[2022-01-20] MEDS: BACITRACIN OU SCH (06:54)
[2022-01-20] MEDS: NEOMYCIN OU SCH (06:54)
[2022-01-20] MEDS: [UNRECOGNIZED DRUG - OTHER] OU SCH (06:54)
[2022-01-20] MEDS: POLYMYXIN B OU SCH (06:54)
[2022-01-20 07:44] VITALS: RESP 18
[2022-01-20 09:23] VITALS: BP 126/78; PULSE 64; TEMP 97.2
[2022-01-21] MEDS ORDERED: chlordiazePOXIDE HCL 10 MG CAPSULE PO SCH (05:00)
[2022-01-22] MEDS ORDERED: chlordiazePOXIDE HCL 10 MG CAPSULE PO ONE (05:00)
== END 2022-01-20 09:20 | disposition home or self-care (01) | DRG 775 ==
LOC: YASAS 09:47 → Y6N 10:58
PROVIDERS: ADMIT Allergy & Immunology; ATTEND Surgery
PROC: HZ2ZZZZ Detoxification Services for Substance Abuse Treatment (ICD-10-PCS; principal; 2022-01-17)
DX: F10.230 Alcohol dependence with withdrawal, uncomplicated (principal); F12.20 Cannabis dependence, uncomplicated; F17.213 Nicotine dependence, cigarettes, with withdrawal; F34.1 Dysthymic disorder; F19.282 Other psychoactive substance dependence with psychoactive substance-induced sleep disorder; F19.24 Other psychoactive substance dependence with psychoactive substance-induced mood disorder; F19.280 Other psychoactive substance dependence with psychoactive substance-induced anxiety disorder; J45.20 Mild intermittent asthma, uncomplicated; B18.2 Chronic viral hepatitis C; D70.0 Congenital agranulocytosis; R76.8 Other specified abnormal immunological findings in serum; R73.09 Other abnormal glucose; Z85.028 Personal history of other malignant neoplasm of stomach; Z28.310 Unvaccinated for COVID-19; Z88.8 Allergy status to other drugs, medicaments and biological substances; Z91.013 Allergy to seafood; Z91.018 Allergy to other foods; Z56.0 Unemployment, unspecified
CPT/HCPCS: 36415; 80053; 82962; 85027; 86593; 86780; 87811; C9803-CS; U0003; U0005

== ENCOUNTER 2023-03-13 10:02 | Inpatient (IN) | payer OTHER ==
[2023-03-13 10:55] VITALS: BMI 15.0
[2023-03-13] MEDS ORDERED: ONDANSETRON *ODT* 4 MG TABLET SL PRN (11:51)
[2023-03-13] MEDS ORDERED: ACETAMINOPHEN 325 MG TABLET (FP) PO PRN (11:51)
[2023-03-13] MEDS ORDERED: NICOTINE POLACRILEX 2 MG GUM BUC PRN (11:51)
[2023-03-13] MEDS ORDERED: IBUPROFEN 600 MG TABLET (FP) PO PRN (11:51)
[2023-03-13] MEDS ORDERED: POLYETHYLENE GLYCOL (HEALTHYLAX) 3350 17 GM PACKET PO PRN (11:51)
[2023-03-13] MEDS ORDERED: MAGNESIUM HYDROX 2400MG/30ML ORAL SUSPENSION 30 ML CUP PO PRN (11:51)
[2023-03-13] MEDS ORDERED: guaiFENesin 600 MG TABLET.ER (FP) PO PRN (11:51)
[2023-03-13] MEDS ORDERED: NALOXONE HCL 0.4 MG/ML VIAL IM PRN (11:51)
[2023-03-13] MEDS ORDERED: LOPERAMIDE HCL 2 MG CAPSULE PO PRN (11:51)
[2023-03-13] MEDS ORDERED: MAG HYDROX/AL HYDROX/SIMETH 30 ML UNIT-DOSE CUP PO PRN (11:51)
[2023-03-13] MEDS ORDERED: BENZONATATE 200 MG CAPSULE PO PRN (11:51)
[2023-03-13] MEDS ORDERED: METHOCARBAMOL 500 MG TABLET PO PRN (11:51)
[2023-03-13] MEDS ORDERED: IBUPROFEN 400 MG TABLET (FP) PO PRN (11:51)
[2023-03-13] MEDS ORDERED: NALOXONE HCL (KLOXXADO) 8 MG SPRAY NS PRN (11:51)
[2023-03-13] MEDS ORDERED: hydrOXYzine PAMOATE 25 MG CAPSULE (FP) PO PRN (11:51)
[2023-03-13] MEDS ORDERED: DICYCLOMINE HCL 10 MG CAPSULE PO PRN (11:51)
[2023-03-13] MEDS ORDERED: BENZOCAINE/MENTHOL (CHLORASEPTIC ) LOZENGE MM PRN (11:51)
[2023-03-13] MEDS ORDERED: BISMUTH SUBSALICYLATE 262 MG/15 ML BTL PO PRN (11:51)
[2023-03-13] MEDS ORDERED: chlordiazePOXIDE HCL 25 MG CAPSULE PO PRN (11:56)
[2023-03-13] MEDS ORDERED: ALBUTEROL SO4 HFA INHALER IH PRN ×2 (11:57→14:49)
[2023-03-13] MEDS: chlordiazePOXIDE HCL 25 MG CAPSULE PO SCH ×2 (17:17→22:05)
[2023-03-13] MEDS ORDERED: THIAMINE HCL 100 MG TABLET (FP) PO SCH (22:00)
[2023-03-13] MEDS ORDERED: MELATONIN 5 MG TABLETS PO SCH (22:00)
[2023-03-14] MEDS: chlordiazePOXIDE HCL 25 MG CAPSULE PO SCH ×3 (05:29→17:27)
[2023-03-14] MEDS ORDERED: PRENATAL VITAMINS W/ FOLIC ACID TABLET (FP) PO SCH (10:00)
[2023-03-14] MEDS ORDERED: NICOTINE 14 MG/24 HOURS TOPICAL PATCH TD SCH (10:00)
[2023-03-14 17:39] VITALS: BP 98/62; PULSE 65; RESP 16; TEMP 97.7
[2023-03-14] MEDS ORDERED: traZODone HCL 100 MG TABLET (FP) PO SCH (22:00)
[2023-03-15] MEDS ORDERED: chlordiazePOXIDE HCL 25 MG CAPSULE PO SCH (05:00)
[2023-03-16] MEDS ORDERED: chlordiazePOXIDE HCL 10 MG CAPSULE PO PRN
[2023-03-16] MEDS ORDERED: chlordiazePOXIDE HCL 10 MG CAPSULE PO SCH (05:00)
[2023-03-17] MEDS ORDERED: chlordiazePOXIDE HCL 10 MG CAPSULE PO SCH (05:00)
[2023-03-18] MEDS ORDERED: chlordiazePOXIDE HCL 10 MG CAPSULE PO ONE (05:00)
== END 2023-03-14 17:08 | disposition left against medical advice (07) | DRG 770 ==
LOC: YASAS 10:02 → Y6N 12:17 → UNDOADMIN 12:17 → UNDODISIN 03-14 17:08
PROVIDERS: ADMIT Allergy & Immunology; ATTEND Surgery
PROC: HZ2ZZZZ Detoxification Services for Substance Abuse Treatment (ICD-10-PCS; principal; 2023-03-13)
DX: F10.230 Alcohol dependence with withdrawal, uncomplicated (principal); F12.20 Cannabis dependence, uncomplicated; F17.210 Nicotine dependence, cigarettes, uncomplicated; F41.0 Panic disorder [episodic paroxysmal anxiety]; F32.A Depression, unspecified; D70.0 Congenital agranulocytosis; J45.20 Mild intermittent asthma, uncomplicated; F10.282 Alcohol dependence with alcohol-induced sleep disorder; F10.24 Alcohol dependence with alcohol-induced mood disorder; Z85.028 Personal history of other malignant neoplasm of stomach
CPT/HCPCS: 87635; 87811; 93005; 93010; Q0162